=== PATIENT | female | born 1980 | race Caucasian/White ===

== ENCOUNTER 2024-10-28 11:56 | Emergency (ER) | payer BC, SELFPAY ==
[2024-10-28 11:58] VITALS: BP 136/87
--- NOTE | 2024-10-28 13:09 | ED.GENMED ---
History of Present Illness
General
Chief Complaint: Eye Problems
Source: patient
Exam Limitations: none
Time Seen by Provider: 10/28/24 12:05
Nursing documentation reviewed up to this point in time: agreed with
History of Present Illness
History of Present Illness:
43-year-old female presenting to the emergency department today with concerns of right sided eye foreign body sensation. She believes that her contact stuck there but she is unsure. She was seen in urgent care and sent to the ER as they were
unable to find any specific foreign bodies.
Review of Systems
Review of Systems
Allergies reviewed?: Yes
All Other Systems: ROS reviewed and negative except as documented in HPI and ROS
Phy Exam
Physical Exam
Physical Exam:
GENERAL: Alert , in no apparent distress
EYE: Very small corneal abrasion seen by fluorescein exam to the 5:00 portion of the cornea pinpoint in size, pupils equal and reactive eyelids everted with no evidence of foreign body. Slit-lamp examination performed with no acute abnormality seen
NECK: Supple, no significant adenopathy.
ENT: o/p clr, mmm.
CARDIAC: Regular rate and rhythm .
LUNGS: Clear breath sounds bilaterally, no acute respiratory distress, no wheezes/rales/rhonchi
ABDOMEN: Soft, without focal tenderness, no r/g, no cvat
NEUROLOGICAL: Alert and oriented, no focal neuro deficits
SKIN: Warm and dry, skin intact.
MUSCULOSKELETAL: No edema, well perfused.
PSYCH: Normal and appropriate interaction.
Course
Orders/Labs/Results
Orders:
Orders
10/28/24 13:07
Ofloxacin [Ocuflox] See Dose Instructions OPHTH ONCE ONE
Vital Signs
Initial and Last Documented VS:
Initial Vital Signs
Temp Pulse Resp BP Pulse Ox
98.0 F 86 16 136/87 100
10/28/24 11:58 10/28/24 11:58 10/28/24 11:58 10/28/24 11:58 10/28/24 11:58
Last Documented Vital Signs
Temp Pulse Resp BP Pulse Ox
98.0 F 86 16 136/87 100
10/28/24 11:58 10/28/24 11:58 10/28/24 11:58 10/28/24 11:58 10/28/24 11:58
MDM/Problems Addressed
MDM/Problems Addressed:
43-year-old female presenting to the emergency department today with concerns of a foreign body sensation to the right eye. She claims that she does wear contact lenses and is is unsure if this was left in place. Here upper eyelid everted with no
evidence of foreign body when explored as far posteriorly as possible. Otherwise normal slit-lamp examination there is a very small potential corneal abrasion to the 5:00 portion of the cornea which could represent what she is feeling as a foreign
body. She was written for antibiotic drops and advised for close Opto follow-up for any ongoing symptoms. Return precautions given.
*Critical Care Note
Total Time (30-74mins, 75-104mins- exclusive of procedures): Not Applicable
ED Attending Note
-
Portions of this chart may have been created with voice recognition software.� Occasional wrong word or��sound alike� substitutions may have occurred due to the inherent limitations of voice recognition software.
Discharge Plan
Departure
Patient Disposition: Home (Routine Discharge)
Date of Disposition: 10/28/24
Time of Disposition: 13:09
Patient with high blood pressure during this ER visit?: No
Condition: Good
Covid-19: Not Applicable
Discharge Problem:
Foreign body sensation, right eye, Abrasion, corneal
Instructions: Corneal Abrasion (DC)
Referrals:
Daryl Miller MD [Active] - Follow up in 2-3 days
Greg Miner MD [Family Provider] -
Cate Young MD [Active] - Follow up in 2-3 days
Stand Alone Forms: Return to Work
Activity Restrictions/Additional Instructions:
You came to the emergency department today with concerns of concern for foreign body to the right eye. Here you had an examination of your eye with no obvious foreign body seen. Please use the eyedrops over the next few days and follow-up closely
with an eye doctor for any ongoing symptoms over the next few days. Return to the emergency department any worsening, new or concerning symptoms.
Discharge Date and Time
Print Language: ITALIAN
[2024-10-28] MEDS: OCUFLOX 1 DROP OPHTH (13:10)
== END 2024-10-28 13:54 | disposition home or self-care (01) ==
LOC: EMR 11:56
PROVIDERS: EMERGENCY PHYSICIAN Emergency Medicine; FAMILY PHYSICIAN Internal Medicine
DX: S05.01XA Injury of conjunctiva and corneal abrasion without foreign body, right eye, initial encounter (principal); X58.XXXA Exposure to other specified factors, initial encounter
CPT/HCPCS: 99283